=== PATIENT | male | born 1960 | race Caucasian/White ===

== ENCOUNTER 2021-06-21 10:02 | Emergency (ER) | payer OTHER, MEDICARE ==
[~2021-06-21] VITALS: Ht 180.3 cm; Wt 99.8 kg
[~2021-06-21 10:02] MED LIST: AMOXICILLIN875 MG PO; COZAAR 50 MG TA50 M2 PO; CYMBALTA30 MG PO; IBUPROFEN 200200 M1 PO; MEDROLDOSEPACK PO; MOBIC7.5 MG PO; NOHOMEMEDICATIONS; NORCO 5-325 TA1 EACH PO; PREDNISONE50 MG PO; PROAIR HFA8.5 GM IH; ROBAXIN 750 MG750 M1 PO
[2021-06-21 10:07] VITALS: BP 128/65
[2021-06-21] MEDS ORDERED: BUPROPION XL300 MG PO (10:12)
[2021-06-21] MEDS ORDERED: SERTRALINE HCL100 MG PO (10:12)
[2021-06-21] MEDS ORDERED: METFORMIN HCL500 M3 PO (10:12)
[2021-06-21] MEDS ORDERED: JARDIANCE10 MG PO (10:13)
[2021-06-21] MEDS ORDERED: PROTONIX40 M2 PO (10:13)
[2021-06-21] MEDS ORDERED: LIPITOR80 MG PO (10:13)
[2021-06-21] MEDS ORDERED: LISINOPRIL2.5 MG PO (10:13)
[2021-06-21] MEDS ORDERED: ASA81BEC PO (10:14)
[2021-06-21] MEDS ORDERED: CARVEDILOL12.5 MG PO (10:14)
[2021-06-21] MEDS ORDERED: VENTOLIN HFA 1818 GM INH (10:57)
[2021-06-21] MEDS ORDERED: DEXAMETHASONE 44 M1 PO (10:57)
== END 2021-06-21 11:15 | disposition home or self-care (01) ==
LOC: M.ERS 10:02
DX: U07.1 COVID-19 (principal); I10 Essential (primary) hypertension; I25.2 Old myocardial infarction; Z98.61 Coronary angioplasty status; Z79.899 Other long term (current) drug therapy; Z79.82 Long term (current) use of aspirin